=== PATIENT | male | born 1965 | race Caucasian/White ===

== ENCOUNTER 2017-09-01 00:24 | Inpatient (IN) | payer MEDICAID ==
[~2017-09-01] VITALS: Ht 180.3 cm; Wt 67.2 kg
[~2017-09-01 00:24] MED LIST: ACET325T14 PO; DOCU-131 PO; IBUP-1484 PO; LEVE250T28 PO; LEVE500T54 PO; LEVO100T PO; SEIZURE MEDICATION; seizure med PO
[2017-09-01 00:57] LABS: BASOPHILS # (AUTO) 0.23 x10^3/uL (0-0.1); BASOPHILS % (AUTO) 3 % (0-1); EOSINOPHILS # (AUTO) 0.54 x10^3/uL (0-0.4); EOSINOPHILS % (AUTO) 7 % (1-7); LYMPHOCYTES # (AUTO) 1.96 x10^3/uL (1-3.4); LYMPHOCYTES % (AUTO) 25 % (22-44); MD NO; MEAN CORPUSCULAR HEMOGLOBIN 29.6 pg (27.5-34.5); MEAN CORPUSCULAR HGB CONC 32.1 g/dL (33.2-36.2); MEAN CORPUSCULAR VOLUME 92.3 fL (81-97); MONOCYTES # (AUTO) 0.51 x10^3/uL (0.2-0.8); MONOCYTES % (AUTO) 6 % (2-9); NEUTROPHILS # (AUTO) 4.74 x10^3/uL (1.8-6.8); NEUTROPHILS % (AUTO) 59 % (42-75); PLATELET COUNT 739 x10^3/uL (130-400); RED BLOOD COUNT 3.89 x10^6/uL (4.38-5.82); RED CELL DISTRIBUTION WIDTH 17.4 % (9.4-14.8)
[2017-09-01] MEDS ORDERED: PROMETHAZINE 25 MG/ML, 1ML ONE (00:59)
[2017-09-01] MEDS ORDERED: SODIUM CHLORIDE FLUSH 10ML SYR IVF ONE (01:00)
[2017-09-01] MEDS ORDERED: MORPHINE SULFATE 4 MG/ML, 1ML IVPush PRN (01:00)
[2017-09-01] MEDS ORDERED: SODIUM CHLORIDE 0.9% 1,000ML IVBOLUS ONE (01:00)
[2017-09-01] MEDS ORDERED: MORPHINE SULFATE 4 MG/ML, 1ML ONE (01:00)
[2017-09-01] MEDS ORDERED: PROMETHAZINE 25 MG/ML, 1ML IM ONE (01:00)
[2017-09-01 01:06] LABS: ALANINE AMINOTRANSFERASE 37 U/L (12-78); ALBUMIN 3.2 g/dL (3.4-5.0); ANION GAP 7 mmol/L (5-15); CHLORIDE 102 mmol/L (98-107); CREATININE 1.17 mg/dL (0.7-1.3)
[2017-09-01 01:10] LABS: ALKALINE PHOSPHATASE 85 U/L (45-117); BILIRUBIN,TOTAL 0.3 mg/dL (0.2-1.0); TOTAL PROTEIN 8.1 g/dL (6.4-8.2)
[2017-09-01] MEDS ORDERED: ACETAMINOPHEN 325 MG TABLET PO PRN (03:00)
[2017-09-01] MEDS ORDERED: ONDANSETRON ODT 4 MG PO PRN (03:00)
[2017-09-01] MEDS ORDERED: hydrALAzine 20 MG/ML, 1ML IVPush PRN (03:00)
[2017-09-01 03:13] LABS: % IRON SATURATION 15 % (20-55); IRON LEVEL 49 mcg/dL (65-175); TOTAL IRON BINDING CAPACITY 336 mcg/dL (250-450); TRIGLYCERIDES 137 mg/dL (50-200)
[2017-09-01] MEDS: LEVOTHYROXINE 100 MCG TABLET PO SCH (04:57)
[2017-09-01] MEDS: HEPARIN 5,000 UNITS/ML, 1ML SQ SCH ×3 (04:57→22:08)
[2017-09-01] MEDS: LACTATED RINGERS 1,000 ML IV SCH ×4 (04:58→23:22)
[2017-09-01] MEDS: morphine SULFATE 10 MG/ML, 1ML IVPush PRN ×2 (08:58→17:10)
[2017-09-01 09:15] VITALS: BP 100/54
[2017-09-01] MEDS: LEVETIRACETAM 500 MG in SODIUM CHLORIDE 0.9% 100 ML IV SCH ×2 (10:08→22:08)
[2017-09-01 14:00] VITALS: BP 100/66
[2017-09-01 17:02] LABS: MICROSCOPIC NOT IND
[2017-09-01 17:03] LABS: CULTURE INDICATED? NO
[2017-09-01 19:22] VITALS: BP 108/72
[2017-09-02] MEDS: morphine SULFATE 10 MG/ML, 1ML IVPush PRN ×2 (00:40→05:47)
[2017-09-02 01:09] VITALS: BP 99/66
[2017-09-02] MEDS: HEPARIN 5,000 UNITS/ML, 1ML SQ SCH ×3 (03:00→19:39)
[2017-09-02 04:53] LABS: ALANINE AMINOTRANSFERASE 28 U/L (12-78); ALBUMIN 2.4 g/dL (3.4-5.0); ANION GAP 6 mmol/L (5-15); CALCIUM 8.2 mg/dL (8.5-10.1); CHLORIDE 108 mmol/L (98-107); CREATININE 0.83 mg/dL (0.7-1.3)
[2017-09-02 04:56] LABS: ALKALINE PHOSPHATASE 61 U/L (45-117); BILIRUBIN,TOTAL 0.3 mg/dL (0.2-1.0); TOTAL PROTEIN 6.1 g/dL (6.4-8.2)
[2017-09-02 05:04] LABS: BASOPHILS # (AUTO) 0.03 x10^3/uL (0-0.1); BASOPHILS % (AUTO) 1 % (0-1); EOSINOPHILS # (AUTO) 0.47 x10^3/uL (0-0.4); EOSINOPHILS % (AUTO) 10 % (1-7); LYMPHOCYTES # (AUTO) 1.52 x10^3/uL (1-3.4); LYMPHOCYTES % (AUTO) 33 % (22-44); MD NO; MEAN CORPUSCULAR HEMOGLOBIN 30.6 pg (27.5-34.5); MEAN CORPUSCULAR HGB CONC 32.5 g/dL (33.2-36.2); MEAN CORPUSCULAR VOLUME 93.9 fL (81-97); MEAN PLATELET VOLUME 7.2 fL (7.4-10.4); MONOCYTES # (AUTO) 0.31 x10^3/uL (0.2-0.8); MONOCYTES % (AUTO) 7 % (2-9); NEUTROPHILS # (AUTO) 2.24 x10^3/uL (1.8-6.8); NEUTROPHILS % (AUTO) 49 % (42-75); PLATELET COUNT 554 x10^3/uL (130-400); RED BLOOD COUNT 3.01 x10^6/uL (4.38-5.82); RED CELL DISTRIBUTION WIDTH 16.8 % (9.4-14.8)
[2017-09-02] MEDS: LACTATED RINGERS 1,000 ML IV SCH ×2 (05:36→19:40)
[2017-09-02] MEDS: LEVOTHYROXINE 100 MCG TABLET PO SCH (05:36)
[2017-09-02 07:51] VITALS: BP 103/68
[2017-09-02] MEDS ORDERED: HYDROcodone/APAP 5/325 TABLET PO PRN (08:30)
[2017-09-02] MEDS: LEVETIRACETAM 500 MG TABLET PO SCH ×2 (09:36→20:51)
[2017-09-02] MEDS: MORPHINE SULFATE 4 MG/ML, 1ML IVPush PRN ×3 (10:02→20:52)
[2017-09-02 14:16] VITALS: BP 99/62
[2017-09-02 15:57] LABS: CLOSTRIDIUM DIFFICILE ANTIGEN NEGATIVE; CLOSTRIDIUM DIFFICILE TOXIN NEGATIVE (Negative)
[2017-09-02 18:33] VITALS: BP 96/61
[2017-09-03 02:08] VITALS: BP 100/67
[2017-09-03] MEDS: LACTATED RINGERS 1,000 ML IV SCH (02:10)
[2017-09-03] MEDS: MORPHINE SULFATE 4 MG/ML, 1ML IVPush PRN ×2 (02:15→05:28)
[2017-09-03] MEDS: HEPARIN 5,000 UNITS/ML, 1ML SQ SCH ×4 (02:50→20:23)
[2017-09-03 05:10] LABS: ANION GAP 5 mmol/L (5-15); CHLORIDE 106 mmol/L (98-107); CREATININE 0.84 mg/dL (0.7-1.3)
[2017-09-03] MEDS: LEVOTHYROXINE 100 MCG TABLET PO SCH (05:28)
[2017-09-03] MEDS: LEVETIRACETAM 500 MG TABLET PO SCH ×2 (07:31→20:23)
[2017-09-03 08:00] VITALS: BP 101/64
[2017-09-03 13:12] VITALS: BP 99/62
[2017-09-03 19:52] VITALS: BP 100/63
[2017-09-04 02:24] VITALS: BP 105/67
[2017-09-04] MEDS: LEVOTHYROXINE 100 MCG TABLET PO SCH (06:00)
[2017-09-04 07:01] VITALS: BP 96/61
[2017-09-04] MEDS ORDERED: LEVE500T53 PO (07:58)
[2017-09-04] MEDS ORDERED: LEVO100T PO (07:58)
[2017-09-04] MEDS: LEVETIRACETAM 500 MG TABLET PO SCH (10:04)
== END 2017-09-04 12:29 | disposition home or self-care (01) | DRG 438 ==
LOC: ED 00:37 → SUATTDRO 02:42 → EDIP 02:43 → 3NW 03:26
PROVIDERS: ADMIT Hospitalist; ATTEND Hospitalist
DX: K85.00 Idiopathic acute pancreatitis without necrosis or infection (principal); E43 Unspecified severe protein-calorie malnutrition; B18.2 Chronic viral hepatitis C; D50.9 Iron deficiency anemia, unspecified; E03.9 Hypothyroidism, unspecified; F15.10 Other stimulant abuse, uncomplicated; F17.200 Nicotine dependence, unspecified, uncomplicated; G40.909 Epilepsy, unspecified, not intractable, without status epilepticus; G89.29 Other chronic pain; K86.1 Other chronic pancreatitis; Z90.49 Acquired absence of other specified parts of digestive tract; Z68.20 Body mass index [BMI] 20.0-20.9, adult
CPT/HCPCS: 36415; 74021; 80048; 80053; 81003; 83540; 83550; 83690; 83880; 84478; 85025; 87324; 96372; 99285; J1644; J1953; J2550; J2270; J7030; J7120

== ENCOUNTER 2017-09-06 20:45 | Inpatient (IN) | payer MEDICAID ==
[~2017-09-06] VITALS: Ht 180.3 cm; Wt 66.4 kg
[~2017-09-06 20:45] MED LIST changes: +LEVE500T53 PO
[2017-09-06] MEDS ORDERED: ONDANSETRON ODT 4 MG PO ONE (21:00)
[2017-09-06] MEDS ORDERED: SODIUM CHLORIDE FLUSH 10ML SYR IVF ONE (21:00)
[2017-09-06] MEDS ORDERED: MORPHINE SULFATE 4 MG/ML, 1ML IVPush PRN (21:00)
[2017-09-06] MEDS ORDERED: SODIUM CHLORIDE 0.9% 1,000ML IVBOLUS ONE (21:00)
[2017-09-06] MEDS ORDERED: ONDANSETRON ODT 4 MG ONE (21:05)
[2017-09-06] MEDS ORDERED: MORPHINE SULFATE 4 MG/ML, 1ML ONE (21:06)
[2017-09-06 21:48] LABS: BASOPHILS # (AUTO) 0.03 x10^3/uL (0-0.1); BASOPHILS % (AUTO) 1 % (0-1); EOSINOPHILS # (AUTO) 0.34 x10^3/uL (0-0.4); EOSINOPHILS % (AUTO) 5 % (1-7); LYMPHOCYTES # (AUTO) 1.88 x10^3/uL (1-3.4); LYMPHOCYTES % (AUTO) 27 % (22-44); MD NO; MEAN CORPUSCULAR HEMOGLOBIN 30.5 pg (27.5-34.5); MEAN CORPUSCULAR HGB CONC 33.2 g/dL (33.2-36.2); MEAN CORPUSCULAR VOLUME 91.8 fL (81-97); MEAN PLATELET VOLUME 7.4 fL (7.4-10.4); MONOCYTES # (AUTO) 0.57 x10^3/uL (0.2-0.8); MONOCYTES % (AUTO) 8 % (2-9); NEUTROPHILS # (AUTO) 4.08 x10^3/uL (1.8-6.8); NEUTROPHILS % (AUTO) 59 % (42-75); PLATELET COUNT 532 x10^3/uL (130-400); RED CELL DISTRIBUTION WIDTH 16.5 % (9.4-14.8)
[2017-09-06] MEDS ORDERED: OMNIPAQUE 350 MG/ML, 100ML BOTTLE ONE (22:33)
[2017-09-06 22:58] LABS: INTERNATIONAL NORMALIZED RATIO 1.02 (0.93-1.1); PROTHROMBIN TIME 10.6 Seconds (9.6-11.5)
[2017-09-06 23:00] LABS: ALANINE AMINOTRANSFERASE 31 U/L (12-78); ANION GAP 6 mmol/L (5-15); CALCIUM 8.5 mg/dL (8.5-10.1); CHLORIDE 107 mmol/L (98-107)
[2017-09-06 23:03] LABS: ALKALINE PHOSPHATASE 77 U/L (45-117); BILIRUBIN,TOTAL 0.3 mg/dL (0.2-1.0); TOTAL PROTEIN 7.2 g/dL (6.4-8.2)
[2017-09-06] MEDS ORDERED: SODIUM CHLORIDE 0.9% 1,000 ML IV ONE (23:21)
[2017-09-06] MEDS ORDERED: hydrALAzine 20 MG/ML, 1ML IVPush PRN (23:30)
[2017-09-06] MEDS ORDERED: ONDANSETRON ODT 4 MG PO PRN (23:30)
[2017-09-06] MEDS ORDERED: ACETAMINOPHEN 325 MG TABLET PO PRN (23:30)
[2017-09-06] MEDS ORDERED: SODIUM CHLORIDE FLUSH 10ML SYR IVF PRN (23:30)
[2017-09-07] MEDS: ENOXAPARIN 40 MG/0.4 ML SQ SCH ×2 (00:58→23:44)
[2017-09-07] MEDS: LEVETIRACETAM 500 MG TABLET PO SCH ×3 (00:59→20:53)
[2017-09-07] MEDS: LACTATED RINGERS 1,000 ML IV SCH ×3 (00:59→20:53)
[2017-09-07 01:00] VITALS: BP 95/74
[2017-09-07] MEDS: morphine SULFATE 10 MG/ML, 1ML IVPush PRN ×2 (01:56→20:53)
[2017-09-07 05:00] LABS: BASOPHILS # (AUTO) 0.05 x10^3/uL (0-0.1); BASOPHILS % (AUTO) 1 % (0-1); EOSINOPHILS # (AUTO) 0.35 x10^3/uL (0-0.4); EOSINOPHILS % (AUTO) 6 % (1-7); LYMPHOCYTES % (AUTO) 41 % (22-44); MD NO; MEAN CORPUSCULAR HEMOGLOBIN 30.7 pg (27.5-34.5); MEAN CORPUSCULAR HGB CONC 32.8 g/dL (33.2-36.2); MEAN CORPUSCULAR VOLUME 93.8 fL (81-97); MEAN PLATELET VOLUME 7.2 fL (7.4-10.4); MONOCYTES # (AUTO) 0.59 x10^3/uL (0.2-0.8); MONOCYTES % (AUTO) 10 % (2-9); NEUTROPHILS # (AUTO) 2.35 x10^3/uL (1.8-6.8); NEUTROPHILS % (AUTO) 42 % (42-75); PLATELET COUNT 508 x10^3/uL (130-400); RED BLOOD COUNT 3.02 x10^6/uL (4.38-5.82)
[2017-09-07 05:11] LABS: ALANINE AMINOTRANSFERASE 30 U/L (12-78); ALBUMIN 2.8 g/dL (3.4-5.0); ANION GAP 6 mmol/L (5-15); CALCIUM 7.7 mg/dL (8.5-10.1); CHLORIDE 110 mmol/L (98-107); CREATININE 1.16 mg/dL (0.7-1.3)
[2017-09-07 05:15] LABS: ALKALINE PHOSPHATASE 74 U/L (45-117); BILIRUBIN,TOTAL 0.3 mg/dL (0.2-1.0); TOTAL PROTEIN 6.9 g/dL (6.4-8.2)
[2017-09-07] MEDS: LEVOTHYROXINE 100 MCG TABLET PO SCH (06:10)
[2017-09-07 06:29] LABS: MICROSCOPIC NOT IND
[2017-09-07 06:32] LABS: CULTURE INDICATED? NO
[2017-09-07 09:02] VITALS: BP 88/57
[2017-09-07] MEDS ORDERED: SODIUM CHLORIDE 0.9% 1,000ML IVBOLUS ONE (09:30)
[2017-09-07] MEDS ORDERED: SINCALIDE (KINEVAC) 5 MCG ONE (13:34)
[2017-09-07 16:02] VITALS: BP 87/60
[2017-09-07 19:40] VITALS: BP 95/54
[2017-09-08 01:38] VITALS: BP 94/63
[2017-09-08] MEDS: LACTATED RINGERS 1,000 ML IV SCH ×5 (03:19→23:37)
[2017-09-08] MEDS: LEVOTHYROXINE 100 MCG TABLET PO SCH (05:27)
[2017-09-08] MEDS: morphine SULFATE 10 MG/ML, 1ML IVPush PRN (05:28)
[2017-09-08 07:41] VITALS: BP 95/62
[2017-09-08 07:47] LABS: MEAN CORPUSCULAR HEMOGLOBIN 29.7 pg (27.5-34.5); MEAN CORPUSCULAR HGB CONC 31.8 g/dL (33.2-36.2); MEAN CORPUSCULAR VOLUME 93.4 fL (81-97); MEAN PLATELET VOLUME 7.2 fL (7.4-10.4); PLATELET COUNT 481 x10^3/uL (130-400); RED BLOOD COUNT 2.96 x10^6/uL (4.38-5.82); RED CELL DISTRIBUTION WIDTH 16.7 % (9.4-14.8)
[2017-09-08 07:51] LABS: ALANINE AMINOTRANSFERASE 22 U/L (12-78); ALBUMIN 2.4 g/dL (3.4-5.0); ANION GAP 5 mmol/L (5-15); CALCIUM 8.2 mg/dL (8.5-10.1); CHLORIDE 110 mmol/L (98-107); CREATININE 0.83 mg/dL (0.7-1.3)
[2017-09-08 07:54] LABS: ALKALINE PHOSPHATASE 64 U/L (45-117); BILIRUBIN,TOTAL 0.4 mg/dL (0.2-1.0); TOTAL PROTEIN 6.1 g/dL (6.4-8.2)
[2017-09-08] MEDS: LEVETIRACETAM 500 MG TABLET PO SCH ×2 (08:10→20:34)
[2017-09-08 08:17] LABS: BASOPHILS # (AUTO) 0.07 x10^3/uL (0-0.1); BASOPHILS % (AUTO) 1 % (0-1); EOSINOPHILS # (AUTO) 0.31 x10^3/uL (0-0.4); EOSINOPHILS % (AUTO) 5 % (1-7); LYMPHOCYTES % (AUTO) 24 % (22-44); MD SCAN; MONOCYTES # (AUTO) 0.42 x10^3/uL (0.2-0.8); MONOCYTES % (AUTO) 7 % (2-9); NEUTROPHILS # (AUTO) 3.67 x10^3/uL (1.8-6.8); NEUTROPHILS % (AUTO) 63 % (42-75)
[2017-09-08 09:43] LABS: CHOL/HDL RATIO 2.7; LDL/HDL RATIO 1.5 (0.5-3.0)
[2017-09-08 15:12] VITALS: BP 100/63
[2017-09-08 15:54] LABS: AMPHETAMINE SCREEN, URINE Negative (Negative); BARBITURATE SCREEN, URINE Negative (Negative); BENZODIAZEPINE SCREEN, URINE Negative (Negative); CANNABINOID SCREEN, URINE Negative (Negative); COCAINE SCREEN, URINE Negative (Negative); METHADONE SCREEN, URINE Negative (Negative); OPIATE SCREEN, URINE Positive (Negative)
[2017-09-08] MEDS: HYDROcodone/APAP 5/325 TABLET PO PRN ×2 (16:27→23:37)
[2017-09-08 19:41] VITALS: BP 95/61
[2017-09-08] MEDS: ENOXAPARIN 40 MG/0.4 ML SQ SCH (23:37)
[2017-09-09 02:01] VITALS: BP 96/59
[2017-09-09] MEDS: HYDROcodone/APAP 5/325 TABLET PO PRN ×3 (05:55→23:11)
[2017-09-09] MEDS: LEVOTHYROXINE 100 MCG TABLET PO SCH (05:56)
[2017-09-09] MEDS: LACTATED RINGERS 1,000 ML IV SCH (05:56)
[2017-09-09 07:26] LABS: ANION GAP 4 mmol/L (5-15); CALCIUM 8.1 mg/dL (8.5-10.1); CHLORIDE 109 mmol/L (98-107); CREATININE 0.99 mg/dL (0.7-1.3)
[2017-09-09 07:43] LABS: BASOPHILS # (AUTO) 0.05 x10^3/uL (0-0.1); BASOPHILS % (AUTO) 1 % (0-1); EOSINOPHILS # (AUTO) 0.24 x10^3/uL (0-0.4); EOSINOPHILS % (AUTO) 4 % (1-7); LYMPHOCYTES # (AUTO) 1.29 x10^3/uL (1-3.4); LYMPHOCYTES % (AUTO) 19 % (22-44); MD NO; MEAN CORPUSCULAR HEMOGLOBIN 30.5 pg (27.5-34.5); MEAN CORPUSCULAR HGB CONC 32.9 g/dL (33.2-36.2); MEAN CORPUSCULAR VOLUME 92.6 fL (81-97); MEAN PLATELET VOLUME 7.5 fL (7.4-10.4); MONOCYTES # (AUTO) 0.64 x10^3/uL (0.2-0.8); MONOCYTES % (AUTO) 9 % (2-9); NEUTROPHILS # (AUTO) 4.63 x10^3/uL (1.8-6.8); NEUTROPHILS % (AUTO) 68 % (42-75); PLATELET COUNT 468 x10^3/uL (130-400); RED BLOOD COUNT 3.09 x10^6/uL (4.38-5.82); RED CELL DISTRIBUTION WIDTH 16.6 % (9.4-14.8)
[2017-09-09 08:27] VITALS: BP 96/62
[2017-09-09] MEDS: LEVETIRACETAM 500 MG TABLET PO SCH ×2 (08:47→19:56)
[2017-09-09 13:30] VITALS: BP 103/68
[2017-09-09 20:15] VITALS: BP 106/72
[2017-09-09] MEDS: ENOXAPARIN 40 MG/0.4 ML SQ SCH (23:12)
[2017-09-10 01:01] VITALS: BP 96/67
[2017-09-10] MEDS: HYDROcodone/APAP 5/325 TABLET PO PRN ×2 (05:07→12:41)
[2017-09-10] MEDS: LEVOTHYROXINE 100 MCG TABLET PO SCH (05:07)
[2017-09-10 06:58] VITALS: BP 95/58
[2017-09-10 08:04] LABS: ALANINE AMINOTRANSFERASE 20 U/L (12-78); ALBUMIN 2.5 g/dL (3.4-5.0); ANION GAP 4 mmol/L (5-15); CALCIUM 8.3 mg/dL (8.5-10.1); CHLORIDE 109 mmol/L (98-107); CREATININE 0.85 mg/dL (0.7-1.3)
[2017-09-10 08:06] LABS: ALKALINE PHOSPHATASE 66 U/L (45-117); BILIRUBIN,TOTAL 0.2 mg/dL (0.2-1.0); TOTAL PROTEIN 6.8 g/dL (6.4-8.2)
[2017-09-10] MEDS: LEVETIRACETAM 500 MG TABLET PO SCH (09:50)
[2017-09-10 14:30] VITALS: BP 101/59
== END 2017-09-10 17:31 | disposition home or self-care (01) | DRG 439 ==
LOC: ED 21:56 → EDIP 23:21 → 4NOR 09-07 00:01
PROVIDERS: ADMIT Hospitalist; ATTEND Hospitalist
DX: K85.00 Idiopathic acute pancreatitis without necrosis or infection (principal); K56.0 Paralytic ileus; D64.9 Anemia, unspecified; E03.9 Hypothyroidism, unspecified; F15.90 Other stimulant use, unspecified, uncomplicated; K86.1 Other chronic pancreatitis; K46.9 Unspecified abdominal hernia without obstruction or gangrene; F17.210 Nicotine dependence, cigarettes, uncomplicated; K82.8 Other specified diseases of gallbladder; N28.9 Disorder of kidney and ureter, unspecified; Z53.20 Procedure and treatment not carried out because of patient's decision for unspecified reasons; Z59.0 Homelessness; Z90.49 Acquired absence of other specified parts of digestive tract
CPT/HCPCS: 36415; 74177; 78227; 80048; 80053; 80061; 80307; 81003; 83605; 83690; 83735; 84100; 85025; 85610; 96361; 96374; J1650; Q0162; Q9967; A9537; C9898; J2270; J2805; J7030; J7120

== ENCOUNTER 2017-09-22 22:00 | Inpatient (IN) | payer MEDICAID ==
[~2017-09-22] VITALS: Ht 180.3 cm; Wt 63.9 kg
[2017-09-22] MEDS ORDERED: SODIUM CHLORIDE FLUSH 10ML SYR IVF ONE (23:30)
[2017-09-22 23:32] LABS: BASOPHILS # (AUTO) 0.05 x10^3/uL (0-0.1); BASOPHILS % (AUTO) 1 % (0-1); EOSINOPHILS # (AUTO) 0.39 x10^3/uL (0-0.4); EOSINOPHILS % (AUTO) 6 % (1-7); LYMPHOCYTES # (AUTO) 1.64 x10^3/uL (1-3.4); LYMPHOCYTES % (AUTO) 25 % (22-44); MD NO; MEAN CORPUSCULAR HEMOGLOBIN 30.1 pg (27.5-34.5); MEAN CORPUSCULAR HGB CONC 32.5 g/dL (33.2-36.2); MEAN CORPUSCULAR VOLUME 92.6 fL (81-97); MEAN PLATELET VOLUME 7.3 fL (7.4-10.4); MONOCYTES # (AUTO) 0.51 x10^3/uL (0.2-0.8); MONOCYTES % (AUTO) 8 % (2-9); NEUTROPHILS # (AUTO) 4.06 x10^3/uL (1.8-6.8); NEUTROPHILS % (AUTO) 61 % (42-75); PLATELET COUNT 486 x10^3/uL (130-400); RED BLOOD COUNT 3.32 x10^6/uL (4.38-5.82); RED CELL DISTRIBUTION WIDTH 16.6 % (9.4-14.8)
[2017-09-22 23:45] LABS: ALANINE AMINOTRANSFERASE 19 U/L (12-78); ALBUMIN 2.6 g/dL (3.4-5.0); ANION GAP 8 mmol/L (5-15); CALCIUM 8.6 mg/dL (8.5-10.1); CHLORIDE 108 mmol/L (98-107); CREATININE 0.79 mg/dL (0.7-1.3)
[2017-09-22 23:47] LABS: ALKALINE PHOSPHATASE 76 U/L (45-117); BILIRUBIN,TOTAL 0.1 mg/dL (0.2-1.0); TOTAL PROTEIN 6.8 g/dL (6.4-8.2)
[2017-09-23] MEDS ORDERED: OMNIPAQUE 350 MG/ML, 100ML BOTTLE ONE (00:44)
[2017-09-23 00:48] LABS: MICROSCOPIC NOT IND
[2017-09-23 00:49] LABS: AMPHETAMINE SCREEN, URINE Negative (Negative); BARBITURATE SCREEN, URINE Negative (Negative); BENZODIAZEPINE SCREEN, URINE Negative (Negative); CANNABINOID SCREEN, URINE Negative (Negative); COCAINE SCREEN, URINE Negative (Negative); METHADONE SCREEN, URINE Negative (Negative); OPIATE SCREEN, URINE Negative (Negative)
[2017-09-23 00:50] LABS: CULTURE INDICATED? NO
[2017-09-23] MEDS ORDERED: ERTAPENEM 1 GM in SODIUM CHLORIDE 0.9% 50 ML IV ONE (03:00)
[2017-09-23] MEDS ORDERED: KETOROLAC 30 MG/1 ML ONE (03:12)
[2017-09-23] MEDS ORDERED: KETOROLAC 30 MG/1 ML IVPush ONE (03:30)
[2017-09-23 04:00] VITALS: BP 94/58
[2017-09-23] MEDS ORDERED: ONDANSETRON ODT 4 MG PO PRN (05:30)
[2017-09-23] MEDS ORDERED: morphine SULFATE 10 MG/ML, 1ML IVPush PRN (05:30)
[2017-09-23] MEDS ORDERED: TRAZODONE 50MG TABLET PO PRN (05:30)
[2017-09-23] MEDS ORDERED: ACETAMINOPHEN 325 MG TABLET PO PRN (05:30)
[2017-09-23] MEDS ORDERED: LABETALOL 5MG/ML, 20ML IVPush PRN (05:30)
[2017-09-23] MEDS ORDERED: ONDANSETRON 2MG/ML, 2ML IVPush PRN (05:30)
[2017-09-23] MEDS: D5%-0.45NACL+KCL 20MEQ 1,000 ML IV SCH ×2 (05:53→14:36)
[2017-09-23] MEDS: NICOTINE 14MG/24 HR PATCH.TD24 TD SCH (05:54)
[2017-09-23] MEDS: LEVOTHYROXINE 100 MCG TABLET PO SCH (05:54)
[2017-09-23] MEDS: LEVETIRACETAM 500 MG TABLET PO SCH ×2 (09:00→21:03)
[2017-09-23 09:16] LABS: INTERNATIONAL NORMALIZED RATIO 0.99 (0.93-1.1); PROTHROMBIN TIME 10.2 Seconds (9.6-11.5)
[2017-09-23 09:25] VITALS: BP 90/56
[2017-09-23] MEDS: FAMOTIDINE 20 MG/2 ML IVPush SCH ×2 (09:28→20:59)
[2017-09-23 13:05] VITALS: BP 93/58
[2017-09-23] MEDS: OXYcodone 5 MG/5 ML ORAL.SOL UDC PO PRN (18:16)
[2017-09-23 19:26] VITALS: BP 100/53
[2017-09-24] MEDS: D5%-0.45NACL+KCL 20MEQ 1,000 ML IV SCH ×3 (00:34→23:45)
[2017-09-24 01:46] VITALS: BP 99/62
[2017-09-24] MEDS: ERTAPENEM 1 GM in SODIUM CHLORIDE 0.9% 50 ML IV SCH (02:40)
[2017-09-24 05:14] LABS: ALANINE AMINOTRANSFERASE 20 U/L (12-78); ALBUMIN 2.4 g/dL (3.4-5.0); ANION GAP 7 mmol/L (5-15); CALCIUM 8.3 mg/dL (8.5-10.1); CHLORIDE 109 mmol/L (98-107); CREATININE 0.95 mg/dL (0.7-1.3)
[2017-09-24 05:16] LABS: ALKALINE PHOSPHATASE 76 U/L (45-117); BILIRUBIN,TOTAL 0.1 mg/dL (0.2-1.0); TOTAL PROTEIN 6.2 g/dL (6.4-8.2)
[2017-09-24] MEDS: NICOTINE 14MG/24 HR PATCH.TD24 TD SCH (05:24)
[2017-09-24] MEDS: LEVOTHYROXINE 100 MCG TABLET PO SCH (05:24)
[2017-09-24 05:27] LABS: BASOPHILS # (AUTO) 0.05 x10^3/uL (0-0.1); BASOPHILS % (AUTO) 1 % (0-1); EOSINOPHILS # (AUTO) 0.41 x10^3/uL (0-0.4); EOSINOPHILS % (AUTO) 7 % (1-7); LYMPHOCYTES # (AUTO) 1.73 x10^3/uL (1-3.4); LYMPHOCYTES % (AUTO) 28 % (22-44); MD NO; MEAN CORPUSCULAR HEMOGLOBIN 30.2 pg (27.5-34.5); MEAN CORPUSCULAR HGB CONC 32.6 g/dL (33.2-36.2); MEAN CORPUSCULAR VOLUME 92.7 fL (81-97); MEAN PLATELET VOLUME 7.5 fL (7.4-10.4); MONOCYTES % (AUTO) 10 % (2-9); NEUTROPHILS % (AUTO) 55 % (42-75); PLATELET COUNT 482 x10^3/uL (130-400); RED BLOOD COUNT 3.28 x10^6/uL (4.38-5.82)
[2017-09-24 08:00] VITALS: BP 90/55
[2017-09-24] MEDS: FAMOTIDINE 20 MG/2 ML IVPush SCH ×2 (09:55→20:52)
[2017-09-24] MEDS: LEVETIRACETAM 500 MG TABLET PO SCH ×2 (09:55→20:52)
[2017-09-24] MEDS: OXYcodone 5 MG/5 ML ORAL.SOL UDC PO PRN ×2 (12:47→20:52)
[2017-09-24 15:32] VITALS: BP 97/62
[2017-09-24 18:56] VITALS: BP 92/62
[2017-09-25 02:17] VITALS: BP 96/68
[2017-09-25] MEDS: ERTAPENEM 1 GM in SODIUM CHLORIDE 0.9% 50 ML IV SCH (03:15)
[2017-09-25] MEDS: OXYcodone 5 MG/5 ML ORAL.SOL UDC PO PRN ×4 (03:25→21:20)
[2017-09-25] MEDS: LEVOTHYROXINE 100 MCG TABLET PO SCH (05:23)
[2017-09-25] MEDS: NICOTINE 14MG/24 HR PATCH.TD24 TD SCH (05:23)
[2017-09-25 05:42] LABS: BASOPHILS # (AUTO) 0.05 x10^3/uL (0-0.1); BASOPHILS % (AUTO) 1 % (0-1); EOSINOPHILS # (AUTO) 0.43 x10^3/uL (0-0.4); EOSINOPHILS % (AUTO) 7 % (1-7); LYMPHOCYTES # (AUTO) 1.81 x10^3/uL (1-3.4); LYMPHOCYTES % (AUTO) 28 % (22-44); MD NO; MEAN CORPUSCULAR HEMOGLOBIN 30.3 pg (27.5-34.5); MEAN CORPUSCULAR HGB CONC 32.6 g/dL (33.2-36.2); MEAN PLATELET VOLUME 7.7 fL (7.4-10.4); MONOCYTES # (AUTO) 0.62 x10^3/uL (0.2-0.8); MONOCYTES % (AUTO) 10 % (2-9); NEUTROPHILS # (AUTO) 3.59 x10^3/uL (1.8-6.8); NEUTROPHILS % (AUTO) 55 % (42-75); PLATELET COUNT 500 x10^3/uL (130-400); RED BLOOD COUNT 3.41 x10^6/uL (4.38-5.82); RED CELL DISTRIBUTION WIDTH 16.4 % (9.4-14.8)
[2017-09-25 05:46] LABS: ANION GAP 5 mmol/L (5-15); CALCIUM 8.3 mg/dL (8.5-10.1); CHLORIDE 108 mmol/L (98-107); CREATININE 0.93 mg/dL (0.7-1.3)
[2017-09-25 07:48] VITALS: BP 102/65
[2017-09-25] MEDS: FAMOTIDINE 20 MG/2 ML IVPush SCH ×2 (10:48→19:46)
[2017-09-25] MEDS: LEVETIRACETAM 500 MG TABLET PO SCH ×2 (10:48→19:46)
[2017-09-25] MEDS: D5%-0.45NACL+KCL 20MEQ 1,000 ML IV SCH ×2 (10:48→21:15)
[2017-09-25 13:48] VITALS: BP 97/59
[2017-09-25 20:07] VITALS: BP 96/63
[2017-09-26] MEDS: OXYcodone 5 MG/5 ML ORAL.SOL UDC PO PRN ×4 (02:07→21:34)
[2017-09-26] MEDS: ERTAPENEM 1 GM in SODIUM CHLORIDE 0.9% 50 ML IV SCH (03:08)
[2017-09-26 03:22] VITALS: BP_SYST 83; BP_SYST 84; BP_DIAS 51; BP_DIAS 58
[2017-09-26 03:39] VITALS: BP 110/74
[2017-09-26 05:12] LABS: CHLORIDE 108 mmol/L (98-107)
[2017-09-26 05:19] LABS: ALANINE AMINOTRANSFERASE 25 U/L (12-78); ALBUMIN 2.6 g/dL (3.4-5.0); ALKALINE PHOSPHATASE 91 U/L (45-117); ANION GAP 5 mmol/L (5-15); BILIRUBIN,TOTAL 0.3 mg/dL (0.2-1.0); CALCIUM 8.5 mg/dL (8.5-10.1); CREATININE 0.97 mg/dL (0.7-1.3); TOTAL PROTEIN 6.8 g/dL (6.4-8.2)
[2017-09-26] MEDS: LEVOTHYROXINE 100 MCG TABLET PO SCH (05:40)
[2017-09-26] MEDS: NICOTINE 14MG/24 HR PATCH.TD24 TD SCH (05:42)
[2017-09-26 08:16] VITALS: BP_SYST 0; BP_SYST 95; BP_DIAS 0; BP_DIAS 51
[2017-09-26] MEDS: LEVETIRACETAM 500 MG TABLET PO SCH ×2 (08:20→20:57)
[2017-09-26] MEDS: FAMOTIDINE 20 MG/2 ML IVPush SCH ×3 (08:20→20:58)
[2017-09-26] MEDS: D5%-0.45NACL+KCL 20MEQ 1,000 ML IV SCH ×2 (11:49→18:30)
[2017-09-26 13:50] VITALS: BP_SYST 0; BP_SYST 95; BP_DIAS 0; BP_DIAS 56
[2017-09-26 18:55] VITALS: BP 96/53
[2017-09-27 01:43] VITALS: BP 95/54
[2017-09-27] MEDS: ERTAPENEM 1 GM in SODIUM CHLORIDE 0.9% 50 ML IV SCH (03:10)
[2017-09-27] MEDS: D5%-0.45NACL+KCL 20MEQ 1,000 ML IV SCH (03:10)
[2017-09-27] MEDS: OXYcodone 5 MG/5 ML ORAL.SOL UDC PO PRN ×2 (03:23→16:15)
[2017-09-27] MEDS: NICOTINE 14MG/24 HR PATCH.TD24 TD SCH (05:34)
[2017-09-27] MEDS: LEVOTHYROXINE 100 MCG TABLET PO SCH (05:34)
[2017-09-27 05:42] LABS: BASOPHILS # (AUTO) 0.04 x10^3/uL (0-0.1); BASOPHILS % (AUTO) 1 % (0-1); EOSINOPHILS # (AUTO) 0.42 x10^3/uL (0-0.4); EOSINOPHILS % (AUTO) 5 % (1-7); LYMPHOCYTES # (AUTO) 1.69 x10^3/uL (1-3.4); LYMPHOCYTES % (AUTO) 21 % (22-44); MD NO; MEAN CORPUSCULAR HEMOGLOBIN 29.8 pg (27.5-34.5); MEAN CORPUSCULAR HGB CONC 32.2 g/dL (33.2-36.2); MEAN CORPUSCULAR VOLUME 92.6 fL (81-97); MEAN PLATELET VOLUME 7.6 fL (7.4-10.4); MONOCYTES # (AUTO) 0.84 x10^3/uL (0.2-0.8); MONOCYTES % (AUTO) 11 % (2-9); NEUTROPHILS # (AUTO) 4.97 x10^3/uL (1.8-6.8); NEUTROPHILS % (AUTO) 62 % (42-75); PLATELET COUNT 466 x10^3/uL (130-400); RED CELL DISTRIBUTION WIDTH 16.3 % (9.4-14.8)
[2017-09-27 05:46] LABS: ANION GAP 6 mmol/L (5-15); CALCIUM 8.7 mg/dL (8.5-10.1); CHLORIDE 104 mmol/L (98-107); CREATININE 0.91 mg/dL (0.7-1.3)
[2017-09-27 07:42] VITALS: BP 89/53
[2017-09-27] MEDS: FAMOTIDINE 20 MG/2 ML IVPush SCH ×2 (09:00→21:34)
[2017-09-27] MEDS: LEVETIRACETAM 500 MG TABLET PO SCH ×2 (09:58→21:34)
[2017-09-27] MEDS: AMOXICILLIN/CLAV 875-125MG TABLET PO SCH ×2 (10:21→21:34)
[2017-09-27 14:00] VITALS: BP 91/57
[2017-09-27 19:08] VITALS: BP 95/62
[2017-09-28 00:57] VITALS: BP 98/62
[2017-09-28] MEDS: NICOTINE 14MG/24 HR PATCH.TD24 TD SCH (05:30)
[2017-09-28] MEDS: LEVOTHYROXINE 100 MCG TABLET PO SCH (05:32)
[2017-09-28] MEDS: OXYcodone 5 MG/5 ML ORAL.SOL UDC PO PRN (06:09)
[2017-09-28] MEDS: AMOXICILLIN/CLAV 875-125MG TABLET PO SCH (08:39)
[2017-09-28] MEDS: LEVETIRACETAM 500 MG TABLET PO SCH (08:39)
[2017-09-28] MEDS: FAMOTIDINE 20 MG/2 ML IVPush SCH (08:40)
[2017-09-28] MEDS ORDERED: AMOX1TAB12 PO (10:25)
[2017-09-28 10:57] VITALS: BP 90/69
== END 2017-09-28 12:00 | disposition home or self-care (01) | DRG 371 ==
LOC: ED 09-23 00:20 → EDIP 09-23 02:52 → 4NOR 09-23 03:30
PROVIDERS: ADMIT Internal Medicine; ATTEND Internal Medicine
DX: K65.1 Peritoneal abscess (principal); K85.90 Acute pancreatitis without necrosis or infection, unspecified; E44.0 Moderate protein-calorie malnutrition; Z68.1 Body mass index [BMI] 19.9 or less, adult; B18.2 Chronic viral hepatitis C; D64.9 Anemia, unspecified; E03.9 Hypothyroidism, unspecified; F15.10 Other stimulant abuse, uncomplicated; R40.0 Somnolence; G40.909 Epilepsy, unspecified, not intractable, without status epilepticus; G47.00 Insomnia, unspecified; I95.89 Other hypotension; Z79.899 Other long term (current) drug therapy; Z90.49 Acquired absence of other specified parts of digestive tract; Z91.19 Patient's noncompliance with other medical treatment and regimen
CPT/HCPCS: 36415; 74177; 80048; 80053; 80307; 81003; 83690; 83735; 84100; 85025; 85610; 85730; 87040; 96374; 96375; 99285; J1335; J1885; Q9967; J3480; S0028

== ENCOUNTER 2018-01-13 16:22 | Emergency (ER) | payer MEDICAID ==
[~2018-01-13] VITALS: Ht 180.3 cm; Wt 75.0 kg
[~2018-01-13 16:22] MED LIST changes: +AMOX1TAB12 PO
[2018-01-13] MEDS ORDERED: HYDROcodone/APAP 10/325 MG TABLET ONE (18:11)
[2018-01-13] MEDS ORDERED: HYDROcodone/APAP 10/325 MG TABLET PO ONE (18:30)
[2018-01-13 19:39] LABS: CULTURE INDICATED? NO; MICROSCOPIC NOT IND
[2018-01-13 20:50] VITALS: BP 110/79
[2018-01-13 21:06] LABS: ANION GAP 8 mmol/L (5-15); CALCIUM 8.6 mg/dL (8.5-10.1); CHLORIDE 107 mmol/L (98-107)
[2018-01-13] MEDS ORDERED: OMNIPAQUE 350 MG/ML, 100ML BOTTLE ONE (21:44)
[2018-01-13] MEDS ORDERED: KETOROLAC 30 MG/1 ML IVPush ONE (22:00)
[2018-01-13] MEDS ORDERED: KETOROLAC 30 MG/1 ML ONE (22:36)
== END 2018-01-13 23:08 | disposition home or self-care (01) ==
LOC: ED 18:08
DX: S52.692A Other fracture of lower end of left ulna, initial encounter for closed fracture (principal); S00.83XA Contusion of other part of head, initial encounter; S00.12XA Contusion of left eyelid and periocular area, initial encounter; Y04.8XXA Assault by other bodily force, initial encounter; Y93.89 Activity, other specified; Y99.8 Other external cause status; Y92.89 Other specified places as the place of occurrence of the external cause; R51 Headache
CPT/HCPCS: 36415; 70450; 70486; 71101; 72072; 73090; 73130; 74177; 80048; 81003; 96374; 99285; J1885; Q9967

== ENCOUNTER 2018-06-03 22:10 | Emergency (ER) | payer MEDICAID ==
[~2018-06-03] VITALS: Ht 180.3 cm; Wt 68.5 kg
--- NOTE | 2018-06-03 23:12 | NUR ---
PT PRESENTED WITH C/O PRODUCTIVE COUGH, GREEN X 1 MOS, PT DENIES FEVERS, N.V.D. MONITORS APPLIED, SIDERAILS UP X2, CALL LIGHT WITHIN REACH. AWAITING ERP FOR EVAL AND ORDERS
[2018-06-03 23:56] VITALS: BP 105/69
== END 2018-06-04 00:13 | disposition home or self-care (01) ==
LOC: ED 23:30
DX: J06.9 Acute upper respiratory infection, unspecified (principal)
CPT/HCPCS: 71046; 99283

== ENCOUNTER 2019-03-18 13:41 | Emergency (ER) | payer MEDICAID ==
[~2019-03-18] VITALS: Ht 180.3 cm; Wt 80.6 kg
[~2019-03-18 13:41] MED LIST changes: -IBUP-1484 PO; +IBUP-1902 PO
--- NOTE | 2019-03-18 14:14 | NUR ---
BILATERAL KNEE SWELLING AND PAIN FOR A MONTH, BILATERAL FLANK PAIN FOR SEVERAL DAYS, ALL OVER BODY PAIN FOR WEEKS
[2019-03-18 14:44] LABS: BASOPHILS # (AUTO) 0.06 x10^3/uL (0-0.1); BASOPHILS % (AUTO) 1 % (0-1); EOSINOPHILS # (AUTO) 0.57 x10^3/uL (0-0.4); EOSINOPHILS % (AUTO) 13 % (1-7); LYMPHOCYTES # (AUTO) 1.65 x10^3/uL (1-3.4); LYMPHOCYTES % (AUTO) 36 % (22-44); MD NO; MEAN CORPUSCULAR HGB CONC 32.5 g/dL (33.2-36.2); MEAN CORPUSCULAR VOLUME 101.3 fL (81-97); MEAN PLATELET VOLUME 8.3 fL (7.4-10.4); MONOCYTES # (AUTO) 0.33 x10^3/uL (0.2-0.8); MONOCYTES % (AUTO) 7 % (2-9); NEUTROPHILS # (AUTO) 1.97 x10^3/uL (1.8-6.8); NEUTROPHILS % (AUTO) 43 % (42-75); PLATELET COUNT 278 x10^3/uL (130-400); RED CELL DISTRIBUTION WIDTH 14.8 % (9.4-14.8)
[2019-03-18 14:54] LABS: ALBUMIN 3.6 g/dL (3.4-5.0); ANION GAP 4 mmol/L (5-15); CALCIUM 8.6 mg/dL (8.5-10.1); CHLORIDE 110 mmol/L (98-107)
[2019-03-18 14:58] LABS: ALANINE AMINOTRANSFERASE 44 U/L (12-78); ALKALINE PHOSPHATASE 72 U/L (45-117); BILIRUBIN,TOTAL 0.5 mg/dL (0.2-1.0); TOTAL PROTEIN 7.8 g/dL (6.4-8.2)
[2019-03-18 15:43] LABS: MICROSCOPIC NOT IND
[2019-03-18 15:47] LABS: CULTURE INDICATED? NO
[2019-03-18 16:35] VITALS: BP 103/69
--- NOTE | 2019-03-18 16:36 | NUR ---
AWAITING RE-EVAL. WATCHING TV, NO DISTRESS.
== END 2019-03-18 17:15 | disposition home or self-care (01) ==
LOC: ED 16:09
DX: M54.6 Pain in thoracic spine (principal); R10.9 Unspecified abdominal pain; M79.89 Other specified soft tissue disorders; K21.9 Gastro-esophageal reflux disease without esophagitis
CPT/HCPCS: 36415; 80053; 81003; 85025; 99283